=== PATIENT | female | born 2000 | race Caucasian/White ===

== ENCOUNTER → 2020-02-21 | Outpatient (CLI) | payer BC, OTHER | LOC: LAB 14:25 | PROVIDERS: ATTEND Family Medicine | DX: R50.9 Fever, unspecified (principal); Z20.822 Contact with and (suspected) exposure to COVID-19 ==

== ENCOUNTER → 2020-03-19 | Outpatient (CLI) | payer BC, OTHER | LOC: CAT 10:37 | PROVIDERS: ATTEND Family Medicine | DX: J06.9 Acute upper respiratory infection, unspecified (principal); J34.2 Deviated nasal septum ==

== ENCOUNTER → 2021-02-18 | Outpatient (CLI) | payer BC, OTHER | LOC: ULTRA 09:56 | PROVIDERS: ATTEND Family Medicine | DX: N83.202 Unspecified ovarian cyst, left side (principal); R10.2 Pelvic and perineal pain ==